=== PATIENT | female | born 1995 | race Caucasian/White ===

== ENCOUNTER 2018-05-31 09:49 | Emergency (ER) | payer SELFPAY ==
[~2018-05-31] VITALS: Ht 165.1 cm; Wt 69.3 kg
[~2018-05-31 09:49] MED LIST: PREN1TAB60 PO
[2018-05-31] MEDS ORDERED: ONDANSETRON ODT 4 MG PO ONE ×2 (10:30→12:30)
--- NOTE | 2018-05-31 12:18 | NUR ---
PT TO ROOM AT THIS TIME FROM LOBBY.
--- NOTE | 2018-05-31 12:26 | NUR ---
PT REPORTS NAUSEA AND VOMITING FOR 3 WEEKS. C/O LOWER ABD PAIN R>L. LMP 04/13/18-04/21/18 THINKS SHE COULD BE . PT IS ALERT, ORIENTED, WITH NAD. PA AT BEDSIDE.
[2018-05-31] MEDS ORDERED: ONDANSETRON ODT 4 MG ONE (12:31)
[2018-05-31 12:55] LABS: BASOPHILS # (AUTO) 0.04 x10^3/uL (0-0.1); BASOPHILS % (AUTO) 0 % (0-1); EOSINOPHILS # (AUTO) 0.09 x10^3/uL (0-0.4); EOSINOPHILS % (AUTO) 1 % (1-7); LYMPHOCYTES # (AUTO) 2.27 x10^3/uL (1-3.4); LYMPHOCYTES % (AUTO) 22 % (22-44); MD NO; MEAN CORPUSCULAR HEMOGLOBIN 28.1 pg (27.0-34.8); MEAN CORPUSCULAR HGB CONC 33.4 g/dL (32.4-35.8); MEAN PLATELET VOLUME 10.3 fL (7.4-10.4); MONOCYTES # (AUTO) 0.56 x10^3/uL (0.2-0.8); MONOCYTES % (AUTO) 6 % (2-9); NEUTROPHILS # (AUTO) 7.37 x10^3/uL (1.8-6.8); NEUTROPHILS % (AUTO) 71 % (42-75); PLATELET COUNT 270 x10^3/uL (130-400); RED BLOOD COUNT 4.58 x10^6/uL (3.82-5.3); RED CELL DISTRIBUTION WIDTH 15.3 % (9.6-15.2)
[2018-05-31 12:59] LABS: HCG UR SG 1.021 (1.003-1.030)
[2018-05-31 13:01] LABS: CULTURE INDICATED? YES; MICROSCOPIC INDICATED
[2018-05-31 13:06] LABS: ALBUMIN 3.6 g/dL (3.4-5.0); ANION GAP 7 mmol/L (5-15); CALCIUM 8.8 mg/dL (8.5-10.1); CHLORIDE 108 mmol/L (98-107)
[2018-05-31 13:11] LABS: ALANINE AMINOTRANSFERASE 26 U/L (12-78); ALKALINE PHOSPHATASE 118 U/L (45-117); BILIRUBIN,TOTAL 0.6 mg/dL (0.2-1.0); CREATININE 0.65 mg/dL (0.55-1.02); TOTAL PROTEIN 7.9 g/dL (6.4-8.2)
--- NOTE | 2018-05-31 13:53 | NUR ---
PT IS RESTING IN BED, RESPIRATIONS EQUAL AND NON LABORED. NAD. PT IS CONNECTED TO THE MONITOR. CALL LIGHT WITHIN REACH.
[2018-05-31 15:00] VITALS: BP 145/88
== END 2018-05-31 15:59 | disposition home or self-care (01) ==
LOC: ED 12:58
DX: O02.0 Blighted ovum and nonhydatidiform mole (principal); O21.8 Other vomiting complicating pregnancy; Z3A.01 Less than 8 weeks gestation of pregnancy; Z98.890 Other specified postprocedural states
CPT/HCPCS: 36415; 76801; 80053; 81001; 81025; 83690; 84702; 85025; 87086; 93005; 99284; Q0162

== ENCOUNTER 2019-09-02 12:38 | Emergency (ER) | payer SELFPAY ==
[~2019-09-02] VITALS: Ht 165.1 cm; Wt 65.8 kg
--- NOTE | 2019-09-02 13:11 | NUR ---
PT CAME IN CO OF ABD CRAMPING IN RLQ AND LLQ X 2 DAYS. STATED SHE TOOK A TEST A FEW WEEKS AGO AND IT WAS POSITIVE. THIS WOULD BE HER 5TH AND SHE HAS HAD 1 MISCARRIAGE. SAYS THIS "CRAMPING ISNT LIKE BEFORE". DENIES TRAUMA. DENIES PAINFUL URINATION. HAS HAD REGULAR BMS. DENIES VAG BLEEDING OR DISCHARGE. PT IS ACCOMPANIED BY BF, CONNECTED TO MONITORING EQUIPMENT AND A BLANKET HAS BEEN PROVIDED.
[2019-09-02 14:01] LABS: MICROSCOPIC NOT IND
[2019-09-02 14:17] LABS: ALBUMIN 3.4 g/dL (3.4-5.0); ANION GAP 5 mmol/L (5-15); CALCIUM 8.9 mg/dL (8.5-10.1); CHLORIDE 109 mmol/L (98-107)
[2019-09-02 14:22] LABS: CREATININE 0.84 mg/dL (0.55-1.02)
[2019-09-02 14:27] LABS: MEAN CORPUSCULAR HEMOGLOBIN 28.6 pg (27.0-34.8); MEAN CORPUSCULAR HGB CONC 32.7 g/dL (32.4-35.8); MEAN CORPUSCULAR VOLUME 87.3 fL (80-100); MEAN PLATELET VOLUME 9.9 fL (7.4-10.4); PLATELET COUNT 254 x10^3/uL (130-400); RED BLOOD COUNT 4.68 x10^6/uL (3.82-5.3); RED CELL DISTRIBUTION WIDTH 15.7 % (9.6-15.2)
[2019-09-02 14:33] LABS: MD YES
[2019-09-02 14:54] VITALS: BP 125/84
--- NOTE | 2019-09-02 14:54 | NUR ---
PT RESTING IN [facility]. VSS. NAD.
[2019-09-02] MEDS ORDERED: ACETAMINOPHEN 500 MG TABLET PO ONE (15:30)
[2019-09-02] MEDS ORDERED: ACETAMINOPHEN 500 MG TABLET ONE (15:31)
[2019-09-02 15:36] LABS: EOS#(MANUAL) 0.12 x10^3/uL (0.0-0.4); EOS% (MANUAL) 1 % (1-7); LYMPH#(MANUAL) 3.39 x10^3/uL (1-3.4); LYMPHS% (MANUAL) 29 % (22-44); MONOS#(MANUAL) 0.94 x10^3/uL (0.3-2.7); MONOS% (MANUAL) 8 % (2-9); SEG#(MANUAL) 7.25 x10^3/uL (1.8-6.8); SEGS% (MANUAL) 62 % (42-75)
[2019-09-02 15:38] LABS: <PLATELET ESTIMATE> ADEQUATE; ANISOCYTOSIS 1+; LARGE PLATELETS 1+
== END 2019-09-02 15:45 | disposition home or self-care (01) ==
LOC: ED 15:20
DX: O20.0 Threatened abortion (principal); Z3A.00 Weeks of gestation of pregnancy not specified
CPT/HCPCS: 36415; 76801; 80048; 81003; 82040; 84702; 85025; 99284

== ENCOUNTER 2019-09-05 11:59 | Emergency (ER) | payer SELFPAY ==
[~2019-09-05] VITALS: Ht 165.1 cm; Wt 67.5 kg
--- NOTE | 2019-09-05 13:14 | NUR ---
EMT DRIVER: PT AMBULATORY WITH STEADY GAIT TO ROOM FROM LOBBY AT THIS TIME.
--- NOTE | 2019-09-05 13:29 | NUR ---
PT A&OX4, RESP EVEN & UNLABORED, SPEECH CLEAR, SKIN WNL. REPORTS SHE'S HAVING ABD PAIN; WAS SEEN HERE ON MONDAY FOR SIMILAR SX AND TOLD SHE MIGHT BE HAVING A MISCARRIAGE. DENIES VAG BLEEDING, VOMITING. C/O RLQ & LLQ PAIN, "BUT MOSTLY ON THE RIGHT". NO PAIN MED TAKEN TODAY. C/O INTERMITTENT NAUSEA AND DIZZINESS. LAST BM: YESTERDAY. LMP: 08/09/19. AB1 LAST ORAL INTAKE: 1100 TODAY
--- NOTE | 2019-09-05 14:18 | NUR ---
TO U/S PER JOYCE
[2019-09-05 15:40] VITALS: BP 103/57
--- NOTE | 2019-09-05 16:09 | NUR ---
PT RESTING QUIETLY ON BED, WATCHING TV, CALL LIGHT W/IN REACH. ICE CHIPS PROVIDED.
== END 2019-09-05 16:53 | disposition home or self-care (01) ==
LOC: ED 14:00
DX: O34.81 Maternal care for other abnormalities of pelvic organs, first trimester (principal); N83.292 Other ovarian cyst, left side; R42 Dizziness and giddiness; R10.2 Pelvic and perineal pain; Z3A.08 8 weeks gestation of pregnancy
CPT/HCPCS: 36415; 76801; 84702; 99284

== ENCOUNTER 2020-05-28 12:36 | Emergency (ER) | payer OTHER ==
[~2020-05-28] VITALS: Ht 165.1 cm; Wt 63.8 kg
[2020-05-28] MEDS ORDERED: KETOROLAC 30 MG/1 ML ONE (13:26)
[2020-05-28] MEDS ORDERED: METHOCARBAMOL 750 MG TABLET ONE (13:26)
[2020-05-28] MEDS ORDERED: KETOROLAC 30 MG/1 ML IM ONE (13:30)
[2020-05-28] MEDS ORDERED: METHOCARBAMOL 750 MG TABLET PO ONE (13:30)
[2020-05-28 14:05] VITALS: BP 135/56
== END 2020-05-28 15:25 | disposition home or self-care (01) ==
LOC: ED 14:11
DX: S16.1XXA Strain of muscle, fascia and tendon at neck level, initial encounter (principal); S39.012A Strain of muscle, fascia and tendon of lower back, initial encounter; M54.6 Pain in thoracic spine; V29.88XA Motorcycle rider (driver) (passenger) injured in other specified transport accidents, initial encounter; Y93.89 Activity, other specified; Y92.488 Other paved roadways as the place of occurrence of the external cause; Y99.8 Other external cause status
CPT/HCPCS: 72072; 72110; 72125; 96372; 99284; J1885